=== PATIENT | male | born 1980 | race American Indian/Alaskan Native ===

== ENCOUNTER 2019-09-02 22:50 | Emergency (ER) | payer MEDICAID ==
--- NOTE | 2019-09-02 23:35 | Emergency Department Report ---
HPI - HPI HPI: Room 14 The patient is an adult size male presenting with a chief complaint of found in a parking lot. The patient appears to be developmentally delayed/mentally handicapped and was reportedly found [place] a gas station with mixed garbled words and wearing a restraint belt on his waist. It is suspected that the patient wandered from a [facility]. Patient denies complaints initially Location: [See above] Duration: [See above] Quality: [See above] Severity: [See above] Timing: [See above] Context: [See above] Modifying factors: [See above] Associated signs and symptoms: [see above] <ARTI PERLA - Last Filed: 09/02/19 23:30> <JEAN LARSEN III - Last Filed: 09/03/19 10:58> - General Chief Complaint: Crying/fussy Time Seen by Provider: 09/02/19 23:22 ED Past Medical Hx - Past Medical History Previous Medical History?: Yes Additional medical history: unable to obtain - Surgical History Past Surgical History?: Yes Additional Surgical History: unable to obtain - Family History Family history: no significant - Social History Smoking Status: Unknown if ever smoked <ARTI PERLA - Last Filed: 09/02/19 23:30> <JEAN LARSEN III - Last Filed: 09/03/19 10:58> - Medications Home Medications: Home Medications Medication Instructions Recorded Confirmed Last Taken Type Ciprofloxacin HCl [Ciprofloxacin 500 mg PO Q12HR 10 Days #20 tab 09/03/19 Unknown Rx TAB] ED Review of Systems ROS: Stated complaint: MEDICAL CLEARANCE Other details as noted in HPI Comment: Unobtainable due to pts medical conditions <ARTI PERLA - Last Filed: 09/02/19 23:30> ROS: Stated complaint: MEDICAL CLEARANCE Other details as noted in HPI <JEAN LARSEN III - Last Filed: 09/03/19 10:58> Physical Exam - Physical Exam Vital Signs: Vital Signs 09/02/19 23:04 Temperature 98.7 F Pulse Rate 118 H Respiratory 19 Rate Blood Pressure 137/94 Blood Pressure 137/94 [Left] O2 Sat by Pulse 100 Oximetry Physical Exam: GENERAL: The patient is well-developed well-nourished male sitting on patient on the floor not appearing to be in acute distress HEENT: Normocephalic. Atraumatic. Extraocular motions are intact. Patient has moist mucous membranes. NECK: Supple. No meningitic signs are noted. Trachea midline CHEST/LUNGS: Clear to auscultation. There is no respiratory distress noted. HEART/CARDIOVASCULAR: Regular. There is no tachycardia. There is no gallop rub or murmur. ABDOMEN: Abdomen is soft, nontender. Patient has normal bowel sounds. There is no abdominal distention. SKIN: There is no rash. There is no edema. There is no diaphoresis. NEURO: The patient is awake and alert. The patient is cooperative. The patient has normal speech MUSCULOSKELETAL: There is no evidence of acute injury. <ARTI PERLA K - Last Filed: 09/02/19 23:30> - Physical Exam Vital Signs: Vital Signs 09/02/19 09/03/19 09/03/19 23:04 02:19 07:00 Temperature 98.7 F 98.2 F 98.3 F Pulse Rate 118 H 87 94 H Respiratory 19 16 18 Rate Blood Pressure 137/94 Blood Pressure 137/94 124/84 144/92 [Left] O2 Sat by Pulse 100 100 100 Oximetry <JEAN LARSEN III K - Last Filed: 09/03/19 10:58> ED Course Vital Signs 09/02/19 23:04 Temperature 98.7 F Pulse Rate 118 H Respiratory 19 Rate Blood Pressure 137/94 Blood Pressure 137/94 [Left] O2 Sat by Pulse 100 Oximetry <ARTI PERLA K - Last Filed: 09/02/19 23:30> Vital Signs 09/02/19 09/03/19 09/03/19 23:04 02:19 07:00 Temperature 98.7 F 98.2 F 98.3 F Pulse Rate 118 H 87 94 H Respiratory 19 16 18 Rate Blood Pressure 137/94 Blood Pressure 137/94 124/84 144/92 [Left] O2 Sat by Pulse 100 100 100 Oximetry - Reevaluation(s) Reevaluation #1: Patient was signed out to me from previous physician for final disposition and 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 Care is here in the ER. Patient is stable for discharge. I discussed all results with caregiver. Patient has been calm the entire time in the ER. Patient will be discharged home to the care of his caregivers. 09/03/19 10:50 <JEAN LARSEN III Dee Dee - Last Filed: 09/03/19 10:58> ED Medical Decision Making - Differential Diagnosis developmentally delayed, <SHANNANCharlesARTI Funez - Last Filed: 09/02/19 23:30> - Lab Data Result diagrams: 09/02/19 23:41 09/02/19 23:41 - Medical Decision Making Patient is a 39-year-old male that presents emergency room for medical evaluation. Patient developed manipulated and autistic. Patient had labs done and were significant for renal insufficiency and UTI. Patient given antibiotics. Patient remained in the ER until a caregiver to take responsibility for the patient was able to take custody. Caregiver in ER and patient discharged to the care of his [facility]. <JEAN LARSEN III - Last Filed: 09/03/19 10:58> Critical care attestation.: If time is entered above; I have spent that time in minutes in the direct care of this critically ill patient, excluding procedure time. <RATI PERLA - Last Filed: 09/02/19 23:30> Critical care attestation.: If time is entered above; I have spent that time in minutes in the direct care of this critically ill patient, excluding procedure time. <JEAN LARSEN III - Last Filed: 09/03/19 10:58> ED Disposition <SHANNANCharlesARTI Dee Dee - Last Filed: 09/02/19 23:30> Is pt being admited?: No Does the pt Need Aspirin: No Time of Disposition: 10:56 <JEAN LARSEN III - Last Filed: 09/03/19 10:58> Clinical Impression: Renal insufficiency, Autism, Developmental delay, moderate UTI (urinary tract infection) Qualifiers: Urinary tract infection type: acute cystitis Hematuria presence: with hematuria Qualified Code(s): N30.01 - Acute cystitis with hematuria Disposition: TO HOME OR SELFCARE Condition: Stable Instructions: Urinary Tract Infection in Men (ED) Additional Instructions: Patient to follow-up with primary care in 2-3 days. 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 Patient to return to ER if condition worsens. Patient take meds as directed. Patient to rest. Patient increase water. Patient to return to [facility]. Prescriptions: Ciprofloxacin HCl [Ciprofloxacin TAB] 500 mg PO Q12HR 10 Days #20 tab Referrals: PRIMARY CARE, [Primary Care Provider] - 2-3 Days
[2019-09-02 23:53] LABS: Basophils # (Auto) 0.1 K/mm3 (0.0-0.1); Basophils % (Auto) 0.5 % (0.0-1.8); Eosinophils % (Auto) 0.1 % (0.0-4.3); Hematocrit 38.7 % (35.5-45.6); Hemoglobin 13.2 gm/dl (11.8-15.2); Lymphocytes # (Auto) 1.2 K/mm3 (1.2-5.4); Lymphocytes % (Auto) 10.3 % (13.4-35.0); Mean Corpuscular HGB Conc 34 % (32-34); Mean Corpuscular Volume 86 fl (84-94); Monocytes % (Auto) 8.7 % (0.0-7.3); Platelet Count 161 K/mm3 (140-440); Red Cell Distribution Width 13.8 % (13.2-15.2)
[2019-09-03 00:11] LABS: Calcium 9.8 mg/dL (8.4-10.2)
[2019-09-03 00:33] LABS: Bacteria,Urine 4+ /HPF (Negative); Bilirubin,Urine NEG (Negative); Blood,Urine NEG (Negative); Color,Urine Straw (Yellow); Urobilinogen,Urine < 2.0 mg/dL (<2.0)
[2019-09-03 00:37] LABS: Amphetamine Screen,Urine PRESUMPTIVE NEGATIVE; Benzodiazepines Screen,Urine PRESUMPTIVE NEGATIVE; Cannabinoid Screen,Urine PRESUMPTIVE NEGATIVE; Cocaine Screen,Urine PRESUMPTIVE NEGATIVE; Methadone Screen,Urine PRESUMPTIVE NEGATIVE; Opiate Screen,Urine PRESUMPTIVE NEGATIVE
[2019-09-03 07:55] VITALS: BP 144/92
== END 2019-09-03 11:06 | disposition home or self-care (01) ==
LOC: ED 22:50 → EDBD 22:50 → ED 09-03 11:06
DX: N39.0 Urinary tract infection, site not specified (principal); N28.9 Disorder of kidney and ureter, unspecified; F84.0 Autistic disorder; R62.50 Unspecified lack of expected normal physiological development in childhood
CPT/HCPCS: 36415; 80048; 80307; 81001; 82550; 85025; 87076; 87086; 87186